=== PATIENT | female | born 1960 | race Caucasian/White ===

== ENCOUNTER 2018-10-18 18:27 | Emergency (ER) | payer OTHER, SELFPAY ==
[2018-10-18 19:13] LABS: Urine Blood TRACE (NEG); Urine Glucose NEGATIVE (NEG); Urine Protein NEGATIVE (NEG); Urine Specific Gravity <1.005 (1.005-1.030)
[2018-10-18 19:14] LABS: Absolute Lymphocytes (CBC) 4.4 K/uL (0.7-4.9); Basophils % 0.6 % (0-1.3); Lymphocytes % 49.5 % (15.3-44.8); MPV 8.3 fL (7.6-11.3); RBC Red Blood Cell Count 4.48 M/uL (3.86-4.86)
[2018-10-18] MEDS ORDERED: ONDANSETRON 4 MG/2 ML VIAL ONE (19:20)
[2018-10-18] MEDS ORDERED: NA CHLORIDE 0.9% 1,000 ML ONE (19:20)
[2018-10-18] MEDS ORDERED: MORPHINE 4 MG/ML SYR ONE (19:20)
[2018-10-18 19:34] LABS: ALT/SGPT 16 U/L (12-78); AST/SGOT 10 U/L (15-37); Albumin 3.6 g/dL (3.4-5.0); Alkaline Phosphatase 87 U/L (45-117); BUN Blood Urea Nitrogen 11 mg/dL (7-18); Bicarbonate 28 mmol/L (21-32); Bilirubin Direct < 0.1 mg/dL (0-0.2); Bilirubin Total 0.1 mg/dL (0.2-1.0); Glucose Level 113 mg/dL (74-106); Lipase 224 U/L (73-393); Potassium 3.5 mmol/L (3.5-5.1); Protein, Total 7.6 g/dL (6.4-8.2); Sodium Level 140 mmol/L (136-145)
[2018-10-18 19:41] LABS: Blood Morphology Comment NOT SEEN (NOT SEEN); Platelet Estimate ADEQ
--- NOTE | 2018-10-18 20:13 | RAD REPORT ---
EXAM DESCRIPTION: CT - Abdomen Pelvis W Contrast - 10/18/2018 7:56 pm CLINICAL HISTORY: Abdominal pain, right upper quadrant pain, history of hepatomegaly and splenomegal y, prior hysterectomy COMPARISON: March 2007 CT abdomen and pelvis TECHNIQUE: Biphasic, helical CT imaging of the abdomen and pelvis was performed following 100 ml non -ionic IV contrast. Oral contrast was given. All CT scans are performed using dose optimization technique as appropriate and may include automated exposure control or mA/KV adjustment according to patient size. FINDINGS: No suspicious findings in the lung bases. Liver and spleen are prominent in size but not clearly abnormally enlarged. Liver has a mild fatty in filtration pattern. This has improved since the pronounced fatty infiltration seen in 2007. No focal liver lesion. No focal splenic abnormality. No pancreatic or peripancreatic abnormality. Gallbladder and biliary tr ee are also without suspicious finding. Symmetric renal function is seen with no hydronephrosis or suspicious renal mass. No pyelonephritis o r acute parenchymal process. No bladder abnormalities. No adrenal abnormalities. Uterus is absent. Ov italo are absent or atrophic. No adnexal abnormality. Stomach is filled with food. No gastric wall thickening or mass. No acute large or small bowel abnorm ality. No appendicitis. Patient has little if any diverticulosis. No free air, free fluid or inflammatory stranding. No mass or bulky lymphadenopathy. A 6 centimeter fat only hernia is seen in the right lower quadrant. Neck is 6 cm. No congestion or edema. Disc and bone degenerative changes are present. No acute bone process seen. IMPRESSION: Contrast enhanced CT abdomen and pelvis showing no acute finding. Nonacute findings are detailed in the body of the report.
--- NOTE | 2018-10-18 20:30 | EDPHYS ---
Physician Documentation [facility] Name: Ewelina Vu Age: 57 yrs Sex: Female : 1960 Arrival Date: 10/18/2018 Time: 18:30 Bed 30 Private MD: ED Physician Trino Santo HPI: 10/18 19:48 This 57 yrs old Female presents to ER via Ambulatory with complaints of pm1 Abdominal Pain. 19:48 The patient presents with abdominal pain in the right upper quadrant. Onset: The pm1 symptoms/episode began/occurred today. The symptoms radiate to right back. Associated signs and symptoms: Pertinent negatives: nausea, vomiting, and diarrhea, chest pain, constipation, dysuria, fever, shortness of breath. The symptoms are described as achy. Modifying factors: The symptoms are alleviated by nothing, the symptoms are aggravated by food. Severity of pain: in the emergency department the pain is actually worse. The patient has not experienced similar symptoms in the past. The patient has not recently seen a physician. 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 - Social history:: Smoking status: Patient/guardian denies using tobacco. - Ebola Screening: : Patient denies exposure to infectious person Patient denies travel to an Ebola-affected area in the 21 days before illness onset. ROS: 19:48 Constitutional: Negative for fever, chills, and weight loss, Eyes: Negative for injury, pm1 pain, redness, and discharge, ENT: Negative for injury, pain, and discharge, Neck: Negative for injury, pain, and swelling, Cardiovascular: Negative for chest pain, palpitations, and edema, Respiratory: Negative for shortness of breath, cough, wheezing, and pleuritic chest pain. 19:48 Back: Negative for injury and pain, : Negative for injury, bleeding, discharge, and swelling, MS/Extremity: Negative for injury and deformity, Skin: Negative for injury, rash, and discoloration, Neuro: Negative for headache, weakness, numbness, tingling, and seizure. 19:48 Abdomen/GI: Positive for abdominal pain, of the right upper quadrant, Negative for nausea, vomiting, and diarrhea, constipation. Exam: 19:48 Constitutional: This is a well developed, well nourished patient who is awake, alert, pm1 and in no acute distress. Head/Face: Normocephalic, atraumatic. Neck: Trachea midline, no thyromegaly or masses palpated, and no cervical lymphadenopathy. Supple, full range of motion without nuchal rigidity, or vertebral point tenderness. No Meningismus. Chest/axilla: Normal chest wall appearance and motion. Nontender with no deformity. No lesions are appreciated. Cardiovascular: Regular rate and rhythm with a normal S1 and S2. No gallops, murmurs, or rubs. Normal PMI, no JVD. No pulse deficits. Respiratory: Lungs have equal breath sounds bilaterally, clear to auscultation and percussion. No rales, rhonchi or wheezes noted. No increased work of breathing, no retractions or nasal flaring. 19:48 Back: No spinal tenderness. No costovertebral tenderness. Full range of motion. Skin: Warm, dry with normal turgor. Normal color with no rashes, no lesions, and no evidence of cellulitis. MS/ Extremity: Pulses equal, no cyanosis. Neurovascular intact. Full, normal range of motion. 19:48 Abdomen/GI: Inspection: abdomen appears normal, Bowel sounds: normal, Palpation: soft, mild abdominal tenderness, in the right upper quadrant, mass, is not appreciated, rebound tenderness, is not appreciated. 19:48 Neuro: Orientation: is normal, Motor: is normal, moves all fours, Sensation: is normal, no obvious gross deficits. Vital Signs: 18:40 Temp 97.5(TE); Height 5 ft. 3 in. (160.02 cm); Pain 10/10; ss 18:47 BP 116 / 67; Pulse 83; Resp 17 S; Pulse Ox 97% on R/A; Weight 90.72 kg (R); ca1 19:30 BP 130 / 70; Pulse 78; Resp 16 S; Pulse Ox 97% on R/A; ca1 20:25 BP 120 / 63; Pulse 81; Resp 16 S; Pulse Ox 98% on R/A; ca1 18:47 Body Mass Index 35.43 (90.72 kg, 160.02 cm) ca1 MDM: 18:42 Patient medically screened. jose 20:26 Data reviewed: vital signs. Data interpreted: Pulse oximetry: on room air is 98 %. pm1 Interpretation: normal. 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 10/18 18:54 Order name: Basic Metabolic Panel; Complete Time: 19:43 pm1 10/18 18:54 Order name: CBC with Diff; Complete Time: 19:43 pm1 10/18 18:54 Order name: Creatinine for Radiology; Complete Time: 19:25 pm1 10/18 18:54 Order name: Hepatic Function; Complete Time: 19:43 pm1 10/18 18:54 Order name: Lipase; Complete Time: 19:43 pm1 10/18 19:08 Order name: Urine Dipstick--Ancillary (enter results); Complete Time: 19:25 cm6 10/18 18:54 Order name: IV Saline Lock; Complete Time: 19:00 pm1 10/18 18:54 Order name: CT Abd/Pelvis - IV Contrast Only; Complete Time: 20:17 pm1 10/18 19:21 Order name: Manual Differential; Complete Time: 19:43 EDMS 10/18 18:54 Order name: Labs collected and sent; Complete Time: 19:00 pm1 Administered Medications: 19:05 Drug: NS 0.9% 1000 ml Route: IV; Rate: 1000 ml; Site: right antecubital; ca1 20:37 Follow up: IV Status: Completed infusion ca1 19:05 Drug: Zofran 4 mg Route: IVP; Site: right antecubital; ca1 20:37 Follow up: Response: No adverse reaction; Nausea is decreased ca1 19:09 Drug: morphine 4 mg Route: IVP; Site: right antecubital; ca1 20:37 Follow up: Response: No adverse reaction; Pain is decreased ca1 20:37 Drug: Pepcid 20 mg Route: IVP; Site: right antecubital; ca1 20:50 Follow up: Response: No adverse reaction rv 20:37 Drug: GI Cocktail without - (Maalox Suspension 30 ml, Lidocaine Liquid 2 % 15 ca1 ml) Route: PO; 20:50 Follow up: Response: Pain is decreased rv Disposition: 10/19 09:54 Co-signature as Attending Physician, Trino Santo MD I agree with the assessment and jose plan of care. Disposition: 10/18/18 20:29 Discharged to Home. Impression: Unspecified abdominal pain. - Condition is Stable. - Discharge Instructions: Abdominal Pain, Adult. - Prescriptions for Bentyl 20 mg Oral Tablet - take 1 tablet by ORAL route every 6 hours As needed; 20 tablet. Pepcid 20 mg Oral Tablet - take 1 tablet by ORAL route every 12 hours for 10 days; 20 tablet. - Medication Reconciliation Form, Thank You Letter, Antibiotic Education, Prescription Opioid Use form. - Follow up: Emergency Department; When: As needed; Reason: Worsening of condition. Follow up: Private Physician; When: 2 - 3 days; Reason: Recheck today's complaints, Continuance of care, Re-evaluation by your physician. - Problem is new. - Symptoms have improved. Signatures: Dispatcher [employer] EDMS Trino Santo MD MD cha Smirch, Shelby, RN RN ss Juan Cartagena, WILFREDO DISPUTE RESOLUTION SPECIALIST pm1 Ellis Brar RN RN Christine Mcfarlane RN RN ca1 Corrections: (The following items were deleted from the chart) 10/18 20:51 20:29 10/18/2018 20:29 Discharged to Home. Impression: Unspecified abdominal pain. rv Condition is Stable. Forms are Medication Reconciliation Form, Thank You Letter, Antibiotic Education, Prescription Opioid Use. Follow up: Emergency Department; When: As needed; Reason: Worsening of condition. Follow up: Private Physician; When: 2 - 3 days; Reason: Recheck today's complaints, Continuance of care, Re-evaluation by your physician. Problem is new. Symptoms have improved. pm1
--- NOTE | 2018-10-18 20:30 | ER ---
Nurse's Notes [facility] Name: Ewelina Vu Age: 57 yrs Sex: Female : 1960 Arrival Date: 10/18/2018 Time: 18:30 Bed 30 Private MD: Diagnosis: Unspecified abdominal pain Presentation: 10/18 18:37 Presenting complaint: Patient states: Intermittent RUQ pain that is worse after eating ss x 2 months. Transition of care: patient was not received from another setting of care. Onset of symptoms is unknown. Risk Assessment: Do you want to hurt yourself or someone else? Patient reports no desire to harm self or others. Initial Sepsis Screen: Does the patient meet any 2 criteria? No. Patient's initial sepsis screen is negative. Does the patient have a suspected source of infection? No. Patient's initial sepsis screen is negative. Care prior to arrival: None. 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 - Social history:: Smoking status: Patient/guardian denies using tobacco. - Ebola Screening: : Patient denies exposure to infectious person Patient denies travel to an Ebola-affected area in the 21 days before illness onset. Screenin:47 Abuse screen: Denies threats or abuse. Denies injuries from another. Nutritional ca1 screening: No deficits noted. Tuberculosis screening: No symptoms or risk factors identified. Fall Risk None identified. Assessment: 18:47 General: Appears in no apparent distress. comfortable, Behavior is calm, cooperative, ca1 appropriate for age. Pain: Complains of pain in posterior aspect of right lateral abdomen, anterior aspect of right lateral abdomen and right upper quadrant Pain currently is 10 out of 10 on a pain scale. Quality of pain is described as sharp, Pain began 2 - 3 months ago but has been worse past few days and worst today. Neuro: Level of Consciousness is awake, alert, obeys commands, Oriented to person, place, time, situation. Cardiovascular: Heart tones S1 S2 Capillary refill < 3 seconds Patient's skin is warm and dry. Respiratory: Airway is patent Respiratory effort is even, unlabored, Respiratory pattern is regular, symmetrical, Breath sounds are clear bilaterally. GI: Abdomen is round non-distended, Bowel sounds present X 4 quads. Abd is soft X 4 quads Abdomen is tender to palpation in posterior aspect of right lateral abdomen and anterior aspect of right lateral abdomen Reports nausea. : No deficits noted. No signs and/or symptoms were reported regarding the genitourinary system. EENT: No deficits noted. No signs and/or symptoms were reported regarding the EENT system. Derm: Skin is intact, is healthy with good turgor, Skin is pink, warm \T\ dry. Musculoskeletal: Circulation, motion, and sensation intact. Capillary refill < 3 seconds, Range of motion: intact in all extremities. 19:40 Reassessment: Patient appears in no apparent distress at this time. Patient and/or ca1 family updated on plan of care and expected duration. Pain level reassessed. Patient is alert, oriented x 3, equal unlabored respirations, skin warm/dry/pink. 19:40 Reassessment: Patient appears in no apparent distress at this time. Patient is alert, ca1 oriented x 3, equal unlabored respirations, skin warm/dry/pink. WILFREDO Martinez at bedside to discuss CT and lab results. 20:38 Reassessment: Patient appears in no apparent distress at this time. Patient is alert, ca1 oriented x 3, equal unlabored respirations, skin warm/dry/pink. Vital Signs: 18:40 Temp 97.5(TE); Height 5 ft. 3 in. (160.02 cm); Pain 10/10; ss 18:47 BP 116 / 67; Pulse 83; Resp 17 S; Pulse Ox 97% on R/A; Weight 90.72 kg (R); ca1 19:30 BP 130 / 70; Pulse 78; Resp 16 S; Pulse Ox 97% on R/A; ca1 20:25 BP 120 / 63; Pulse 81; Resp 16 S; Pulse Ox 98% on R/A; ca1 18:47 Body Mass Index 35.43 (90.72 kg, 160.02 cm) ca1 ED Course: 18:30 Patient arrived in ED. mr 18:34 Marinas, Juan, OCCUPATIONAL PHYSICIAN is PHCP. pm1 18:34 Trino Santo MD is Attending Physician. pm1 18:38 Christine Mcfarlane, KURT is Primary Nurse. ca1 18:39 Triage completed. ss 18:40 Arm band placed on right wrist. ss 18:47 Patient has correct armband on for positive identification. Placed in gown. Bed in low ca1 position. Call light in reach. Side rails up X 1. Pulse ox on. NIBP on. Warm blanket given. 18:47 No provider procedures requiring assistance completed. ca1 19:[address] via wheelchair. eh 19:58 CT Abd/Pelvis - IV Contrast Only In Process Unspecified. EDMS 19:59 CT completed. Patient tolerated procedure well. Patient moved back from CT. eh 20:51 IV discontinued, intact, bleeding controlled, No redness/swelling at site. Pressure rv dressing applied. Administered Medications: 19:05 Drug: NS 0.9% 1000 ml Route: IV; Rate: 1000 ml; Site: right antecubital; ca1 20:37 Follow up: IV Status: Completed infusion ca1 19:05 Drug: Zofran 4 mg Route: IVP; Site: right antecubital; ca1 20:37 Follow up: Response: No adverse reaction; Nausea is decreased ca1 19:09 Drug: morphine 4 mg Route: IVP; Site: right antecubital; ca1 20:37 Follow up: Response: No adverse reaction; Pain is decreased ca1 20:37 Drug: Pepcid 20 mg Route: IVP; Site: right antecubital; ca1 20:50 Follow up: Response: No adverse reaction rv 20:37 Drug: GI Cocktail without - (Maalox Suspension 30 ml, Lidocaine Liquid 2 % 15 ca1 ml) Route: PO; 20:50 Follow up: Response: Pain is decreased rv Outcome: 20:29 Discharge ordered by MD. pm1 20:50 Discharged to home ambulatory, with family. rv 20:50 Condition: good 20:50 Discharge instructions given to patient, family, Instructed on discharge instructions, follow up and referral plans. medication usage, Demonstrated understanding of instructions, follow-up care, medications, Prescriptions given X 2. 20:51 Patient left the ED. rv Signatures: Dispatcher [employer] EDKY Kassandra Lofton FloryYunior Mackenzie Garcia RN RN Juan Jacques NP OCCUPATIONAL PHYSICIAN pm1 Ellis Brar, RN RN rv Acob, Christine, RN RN ca1
[2018-10-18] MEDS ORDERED: MAGNE/ALUM HYDROXD 30 ML UCUP ONE (20:51)
[2018-10-18] MEDS ORDERED: FAMOTIDINE 20 MG/2 ML VIAL IV ONE (20:52)
[2018-10-18] MEDS ORDERED: LIDOCAINE VISCOUS 2% SOLN 15 ML UDC ONE (20:52)
== END 2018-10-18 20:51 | disposition home or self-care (01) ==
LOC: ER 18:27
DX: R10.11 Right upper quadrant pain (principal); J44.9 Chronic obstructive pulmonary disease, unspecified; I10 Essential (primary) hypertension; E11.9 Type 2 diabetes mellitus without complications
CPT/HCPCS: 36415; 74177; 80048; 80076; 81003; 83690; 85025; 96361; 96374; 96375; 99284; J2405; J7030; Q9967

== ENCOUNTER 2023-01-30 12:45 | Emergency (ER) | payer OTHER ==
--- OUTSIDE RECORDS SUMMARY | 2023-01-30 12:47 | XMS REPORT | Continuity of Care Document ---
:1960 Author Organization [facility] t Address [address] [facility] [address] [place] [address] Care Team Providers Name Role Phone Unavailable Unavailable Unavailable Problems This patient has no known problems. Allergies, Adverse Reactions, Alerts This patient has no known allergies or adverse reactions. Medications This patient has no known medications. Procedures This patient has no known procedures. Encounters Start End Encounter Admission Attending Care Care Encounter Source Date/Time Date/Time Type Type Clinicians Facility Department ID 2023-01-26 2023-01-26 Outpatient [facility] [id number] 023 Wade 08:04:05 08:04:05 [address] [facility] [place] 2023-01-12 2023-01-12 Outpatient [facility] [id number] 023 Wade 08:06:45 08:06:45 1020 [facility] [place] 2022-11-17 2022-11-17 Outpatient [facility] [id number] 023 Wade 07:58:48 07:58:48 0825 F [place] 2022-05-10 2022-05-10 Outpatient [facility] [id number] 023 Wade 14:33:15 14:33:15 0215 [facility] [place] 2022-01-10 2022-01-10 Outpatient [facility] [id number] 022 Wade 07:56:40 07:56:40 1018 F Nick Results Test Description Test Time Test Comments Results Result Comments Source HEMOGLOBIN A1c 2023-01-27 02:16:41 Test Item Value Reference Range Interpretation Comme nts HEMOGLOBIN A1c (test code = 8.1 % 4.2-5.6 H [employer] 79095) GUIDELINES FOR HGB A1C: PREDIABETES/INC REASED RISK . . . . . . . 5.7-6.4% DIAGNO SIS OF DIABETES . . . . . . . . . >=6.5% WITH CONFIRMATION OR APPROPRIATE SYM PTOMS NOTE: ASSAY MAY BE AFFECTED BY HEM OGLOBINOPATHIES (SICKLE CELL ANEMIA, S- C DISEASE, OTHERS) OR ARTIFICIALLY LO WERED BY DECREASED RED CELL SURVIVAL ( HEMOLYTIC ANEMIAS, BLOOD LOSS, ETC.). CO NSIDER ALTERNATE TESTING OR LABORATORY C ONSULTATION. UNLESS OTHERWISE INDIC ATED, ALL TESTING PERFORMED AT [facility], [facility]. [address] [place] [address] GRAEME LEGGETT DIRECTOR: CHERELLE SCHULER M.D. [place] NUMBER [id number] [place] [id number] COMPREHENSIVE METABOLIC [id number] 03:15:29 Test Item Value Reference Range Interpretation Comments GLUCOSE (test code = 212 MG/DL 70-99 H 2216) BUN (test code = 10 MG/DL 8-23 2207) CREATININE (test 0.59 MG/DL 0.60-1.30 L code = 221) eGFR (2020 CKD-EPI) 103 >60 (test code = 03628) ML/MIN/1.73 CALC BUN/CREAT (test 17 RATIO 6-28 code = 2235) SODIUM (test code = 140 MEQ/L 612-094 3851) POTASSIUM (test code 4.6 MEQ/L 3.5-5.4 = 2227) CHLORIDE (test code 102 MEQ/L 95-107 = 221) CARBON DIOXIDE (test 25 MEQ/L 19-31 code = 2206) CALCIUM (test code = 9.3 MG/DL 8.5-10.5 2208) PROTEIN, TOTAL (test 7.1 G/DL 6.1-8.3 code = 2229) ALBUMIN (test code = 4.4 G/DL 3.5-5.2 2200) CALC GLOBULIN (test 2.7 G/DL 1.9-3.7 code = 2240) CALC A/G RATIO (test 1.6 RATIO 1.0-2.6 code = 2234) BILIRUBIN, TOTAL 0.3 MG/DL See_Comment [Automated message] (test code = 2207) The syste m which generated this result transmit ricky reference range : <=1.2. The refe rence range was not u sed to interpret th is result as normal/abnormal . ALKALINE PHOSPHATASE 107 U/L 40-136 (test code = 2204) AST (test code = 9 U/L 9-40 2217) ALT (test code = 10 U/L 5-40 2218) LIPID [id number] 03:15:29 Test Item Value Reference Range Interpretation Comments CHOLESTEROL (test 197 MG/DL <200 code = 2210) TRIGLYCERIDES (test 112 MG/DL <150 code = 2232) HDL CHOLESTEROL (test 54 MG/DL >39 code = 2220) CALC LDL CHOL (test 121 MG/DL <100 H NOTE: C ALCULATED LDL code = 2237) IS BASED ON JACK-STEARNS METHOD WHICHINCLUDES ADJUSTABLE TRIGLYCERIDE:VL DL CHOLESTEROL RAT IO.THIS FACTOR VARIES B Y MEASURED TRIGLY CERIDE AND NON-HDLCHOL ESTEROL CONCENTRATIONS WITH INCREASED CALCU LATED LDL SEENIN HIGH ER TRIGLYCERIDE OR LOWER NON-HDL SPECIME NS. FOR MOREINFORMATION , SEE CLIENT ANNOUNCE MENT AT [email or web address] LDL/HDL 2.24 RATIO <3.22 UNLESS O THERWISE (test code = 2238) INDICATED , ALL TESTING PERFORMED AT [facility], [facility]. [address] [place] [id number] [place] [address] DIRECTOR: Elodia MARTINEZ EDGAR NUMBER [id number] CAP ACCREDITATION N O. [id number] HEMOGLOBIN [id number] 02:45:35 Test Item Value Reference Range Interpretation Comments HEMOGLOBIN A1c (test 9.1 % 4.2-5.6 H [employer] code = 21285) ASSOCIATION IDELINES FOR HGB A1C: PREDIABETES/INC REASED RISK . . . . . . . 5.7 -6.4% DIAGNOSIS OF DI ABETES . . . . . . . . . >=6 .5% WITH CONFIRMATION OR APPROPRIATE SYMPTOMS NOTE: ASSAY MAY BE AFFECTED BY HEMOGLOBINOPATH IES (SICKLE CELL ANEMIA, S- C DISEASE, OTHERS) OR ISMA FICIALLY LOWERED BY DECR EASED RED CELL SURVIVAL ( HEMOLYTIC ANEMIAS, BLOOD LOSS, ETC.). CONSIDER ALTERN ATE TESTING OR LABORATORY C ONSULTATION. [id number] 05:31:19 Test Item Value Reference Range Interpretation Comments AMYLASE (test code = 2205) 93 U/L 28-100 [id number] 05:31:19 Test Item Value Reference Range Interpretation Comments LIPASE (test code = 65 U/L 13-60 H [facility] has important 2057) pathology staff changes effective 05/24. New pathology s taff will provide uninter rupted, excellent patie nt care and clinical consultation. S ee URL: [email or web address] UNLESS O THERWISE INDICATED, ALL TESTING PERFORMED AT [facility] [employer] [address] [place], [place] CLIA: [id number], CAP: [id number] LIPID [id number] 05:14:36 Test Item Value Reference Range Interpretation Comments CHOLESTEROL (test 197 MG/DL <200 code = 2210) TRIGLYCERIDES (test 234 MG/DL <150 H code = 2232) HDL CHOLESTEROL (test 47 MG/DL >39 code = 2220) CALC LDL CHOL (test 115 MG/DL <100 H NOTE: C ALCULATED LDL code = 2237) IS BASED ON JACK-STEARNS METHOD WHICHINCLUDES ADJUSTABLE TRIGLYCERIDE:VL DL CHOLESTEROL RAT IO.THIS FACTOR VARIES B Y MEASURED TRIGLY CERIDE AND NON-HDLCHOL ESTEROL CONCENTRATIONS WITH INCREASED CALCU LATED LDL SEENIN HIGH ER TRIGLYCERIDE OR LOWER NON-HDL SPECIME NS. FOR MOREINFORMATION , SEE CLIENT ANNOUNCE MENT AT [email or web address] LDL/HDL 2.45 RATIO <3.22 (test code = 2238) COMPREHENSIVE METABOLIC [id number] 05:14:36 Test Item Value Reference Range Interpretation Comments GLUCOSE (test code = 154 MG/DL 70-99 H 2216) BUN (test code = 14 MG/DL 6-20 2207) CREATININE (test 0.77 MG/DL 0.60-1.30 code = 2214) eGFR (2020 CKD-EPI) 89 ML/MIN/1.73 >60 (test code = 32676) CALC BUN/CREAT (test 18 RATIO 6-28 code = 2235) SODIUM (test code = 141 MEQ/L 062-032 9204) POTASSIUM (test code 4.0 MEQ/L 3.5-5.4 = 2228) CHLORIDE (test code 101 MEQ/L 95-107 = 2215) CARBON DIOXIDE (test 27 MEQ/L 19-31 code = 2206) CALCIUM (test code = 9.4 MG/DL 8.5-10.5 2208) PROTEIN, TOTAL (test 6.8 G/DL 6.1-8.3 code = 2228) ALBUMIN (test code = 4.2 G/DL 3.5-5.2 2200) CALC GLOBULIN (test 2.6 G/DL 1.9-3.7 code = 2239) CALC A/G RATIO (test 1.6 RATIO 1.0-2.6 code = 2233) BILIRUBIN, TOTAL <0.2 MG/DL See_Comment [Automated message] (test code = 2206) The syste m which generated this result transmit ricky reference range : <=1.2. The refe rence range was not u sed to interpret th is result as normal/abnormal . ALKALINE PHOSPHATASE 80 U/L 40-136 (test code = 2203) AST (test code = 15 U/L 9-40 2217) ALT (test code = 9 U/L 5-40 2218) HEMOGLOBIN [id number] 03:29:36 Test Item Value Reference Range Interpretation Comments HEMOGLOBIN A1c (test 6.8 % 4.2-5.6 H [employer] code = 25650) ASSOCIATION IDELINES FOR HGB A1C: PREDIABETES/INC REASED RISK . . . . . . . 5.7 -6.4% DIAGNOSIS OF DI ABETES . . . . . . . . . >=6 .5% WITH CONFIRMATION OR APPROPRIATE SYMPTOMS NOTE: ASSAY MAY BE AFFECTED BY HEMOGLOBINOPATH IES (SICKLE CELL ANEMIA, S- C DISEASE, OTHERS) OR ISMA FICIALLY LOWERED BY DECR EASED RED CELL SURVIVAL ( HEMOLYTIC ANEMIAS, BLOOD LOSS, ETC.). CONSIDER ALTERN ATE TESTING OR LABORATORY C ONSULTATION. [id number] 06:52:23 Test Item Value Reference Range Interpretation Comments AMYLASE (test code = 2204) 82 U/L 28-100 [id number] 06:52:23 Test Item Value Reference Range Interpretation Comments LIPASE (test code = 17 U/L 13-60 UNLESS OTHERWISE 2057) INDICATED, ALL TESTING PERFORMED [facility] [address] [place] [address] [facility] DIRECTOR: CHUCHO JONES M.D. CLIA NUMBER [id number] CAP ACCREDITATION N O. [id number] COMPREHENSIVE METABOLIC [id number] 06:43:00 Test Item Value Reference Range Interpretation Comments GLUCOSE (test code = 44 MG/DL 70-99 L Analyt ic results 2216) reviewed and verified. Speci men received with r ed cells in contac t with serum. Cer tain results may be affected. Clini zohaib correlation is advised to dete rmine need for recollection. BUN (test code = 11 MG/DL 6-20 2207) CREATININE (test 0.53 MG/DL 0.60-1.30 L code = 2214) eGFR (2020 CKD-EPI) 106 >60 (test code = 69378) ML/MIN/1.73 CALC BUN/CREAT (test 21 RATIO 6-28 code = 2235) SODIUM (test code = 145 MEQ/L 034-601 9099) POTASSIUM (test code 4.2 MEQ/L 3.5-5.4 = 2227) CHLORIDE (test code 105 MEQ/L 95-107 = 2214) CARBON DIOXIDE (test 28 MEQ/L 19-31 code = 2206) CALCIUM (test code = 9.1 MG/DL 8.5-10.5 2208) PROTEIN, TOTAL (test 6.6 G/DL 6.1-8.3 code = 222) ALBUMIN (test code = 4.3 G/DL 3.5-5.2 2200) CALC GLOBULIN (test 2.3 G/DL 1.9-3.7 code = 2240) CALC A/G RATIO (test 1.9 RATIO 1.0-2.6 code = 2234) BILIRUBIN, TOTAL <0.2 MG/DL See_Comment [Automated message] (test code = 2207) The syste m which generated this result transmit ricky reference range : <=1.2. The refe rence range was not u sed to interpret th is result as normal/abnormal . ALKALINE PHOSPHATASE 80 U/L 40-136 (test code = 2204) AST (test code = 12 U/L 9-40 2217) ALT (test code = 12 U/L 5-40 2218) LIPID [id number] 06:43:00 Test Item Value Reference Range Interpretation Comments CHOLESTEROL (test 205 MG/DL <200 H code = 2210) TRIGLYCERIDES (test 114 MG/DL <150 code = 2232) HDL CHOLESTEROL (test 57 MG/DL >39 code = 2220) CALC LDL CHOL (test 126 MG/DL <100 H NOTE: C ALCULATED LDL code = 2237) IS BASED ON JACK-STEARNS METHOD WHICHINCLUDES ADJUSTABLE TRIGLYCERIDE:VL DL CHOLESTEROL RAT IO.THIS FACTOR VARIES B Y MEASURED TRIGLY CERIDE AND NON-HDLCHOL ESTEROL CONCENTRATIONS WITH INCREASED CALCU LATED LDL SEENIN HIGH ER TRIGLYCERIDE OR LOWER NON-HDL SPECIME NS. FOR MOREINFORMATION , SEE CLIENT ANNOUNCE MENT AT [email or web address] RATIO LDL/HDL 2.21 RATIO <3.22 (test code = 2238) HEMOGLOBIN [id number] 06:16:10 Test Item Value Reference Range Interpretation Comments HEMOGLOBIN A1c (test 6.8 % 4.2-5.6 H [employer] code = 33063) ASSOCIATION IDELINES FOR HGB A1C: PREDIABETES/INC REASED RISK . . . . . . . 5.7 -6.4% DIAGNOSIS OF DI ABETES . . . . . . . . . >=6 .5% WITH CONFIRMATION OR APPROPRIATE SYMPTOMS NOTE: ASSAY MAY BE AFFECTED BY HEMOGLOBINOPATH IES (SICKLE CELL ANEMIA, S- C DISEASE, OTHERS) OR ISMA FICIALLY LOWERED BY DECR EASED RED CELL SURVIVAL ( HEMOLYTIC ANEMIAS, BLOOD LOSS, ETC.). CONSIDER ALTERN ATE TESTING OR LABORATORY C ONSULTATION. HEMOGLOBIN [id number] 05:34:43 Test Item Value Reference Range Interpretation Comments HEMOGLOBIN A1c (test 7.2 % 4.2-5.6 H [employer] code = 72389) ASSOCIATION IDELINES FOR HGB A1C: PREDIABETES/INC REASED RISK . . . . . . . 5.7 -6.4% DIAGNOSIS OF DI ABETES . . . . . . . . . >=6 .5% WITH CONFIRMATION OR APPROPRIATE SYMPTOMS NOTE: ASSAY MAY BE AFFECTED BY HEMOGLOBINOPATH IES (SICKLE CELL ANEMIA, S- C DISEASE, OTHERS) OR ISMA FICIALLY LOWERED BY DECR EASED RED CELL SURVIVAL ( HEMOLYTIC ANEMIAS, BLOOD LOSS, ETC.). CONSIDER ALTERN ATE TESTING OR LABORATORY C ONSULTATION. LIPID [id number] 04:33:44 Test Item Value Reference Range Interpretation Comments CHOLESTEROL (test 154 MG/DL <200 code = 2210) TRIGLYCERIDES (test 122 MG/DL <150 code = 2232) HDL CHOLESTEROL (test 39 MG/DL >39 L code = 2220) CALC LDL CHOL (test 93 MG/DL <100 NOTE: C ALCULATED LDL code = 2237) IS BASED ON JACK-STEARNS METHOD WHICHINCLUDES ADJUSTABLE TRIGLYCERIDE:VL DL CHOLESTEROL RAT IO.THIS FACTOR VARIES B Y MEASURED TRIGLY CERIDE AND NON-HDLCHOL ESTEROL CONCENTRATIONS WITH INCREASED CALCU LATED LDL SEENIN HIGH ER TRIGLYCERIDE OR LOWER NON-HDL SPECIME NS. FOR MOREINFORMATION , SEE CLIENT ANNOUNCE MENT AT [email or web address] RATIO LDL/HDL 2.38 RATIO <3.22 UNLESS O THERWISE (test code = 2238) INDICATED , ALL TESTING PERFORMED [facility], [facility]. [address] [place] [id number] [place] [address] JARVIS DIRECTOR: CHUCHO JONES M.D. CLIA NUMBER [id number] CAP ACCREDITATION N O. [id number] HEMOGLOBIN [id number] 07:33:04 Test Item Value Reference Range Interpretation Comments HEMOGLOBIN A1c (test 9.0 % 4.2-5.6 H [employer] code = 94907) ASSOCIATION IDELINES FOR HGB A1C: PREDIABETES/INC REASED RISK . . . . . . . 5.7 -6.4% DIAGNOSIS OF DI ABETES . . . . . . . . . >=6 .5% WITH CONFIRMATION OR APPROPRIATE SYMPTOMS NOTE: ASSAY MAY BE AFFECTED BY HEMOGLOBINOPATH IES (SICKLE CELL ANEMIA, S- C DISEASE, OTHERS) OR ISMA FICIALLY LOWERED BY DECR EASED RED CELL SURVIVAL ( HEMOLYTIC ANEMIAS, BLOOD LOSS, ETC.). CONSIDER ALTERN ATE TESTING OR LABORATORY C ONSULTATION. CBC W/AUTO DIFF WITH [id number] 06:38:12 Test Item Value Reference Range Interpretation Comments WBC (test code = 7.3 K/UL 3.5-11.0 1001) RBC (test code = 4.76 M/UL 3.80-5.40 1002) HEMOGLOBIN (test code 14.8 G/DL 11.5-15.5 = 1003) HEMATOCRIT (test code 42.8 % 34.0-45.0 = 1004) MCV (test code = 89.9 fL 80.0-99.0 1005) MCH (test code = 31.1 PG 25.0-33.0 1006) MCHC (test code = 34.6 G/DL 31.0-36.0 1007) RDW (test code = 12.2 % 11.5-15.0 1038) NEUTROPHILS (test 45.9 % code = 1008) LYMPHOCYTES (test 48.3 % code = 1010) MONOCYTES (test code 4.4 % = 1011) EOSINOPHILS (test 0.4 % code = 1012) BASOPHILS (test code 0.7 % = 1013) IMMATURE GRANULOCYTES 0.3 % (test code = 1036) NUCLEATED RBCS (test 0.0 /100 WBC'S See_Comment [Aut omated code = 1065) message] The sy stem which generated this result transmitted reference range : 0.0. The refere nce range was not u sed to interpret th is result as normal/abnormal . PLATELET COUNT (test 237 K/UL 130-400 code = 1015) ABSOLUTE NEUTROPHILS 3.36 K/UL 1.50-7.50 (test code = 1066) ABSOLUTE LYMPHOCYTES 3.53 K/UL 1.00-4.00 (test code = 1067) ABSOLUTE MONOCYTES 0.32 K/UL 0.20-1.00 (test code = 1068) ABSOLUTE EOSINOPHILS 0.03 K/UL 0.00-0.50 (test code = 1040) ABSOLUTE BASOPHILS 0.05 K/UL 0.00-0.20 (test code = 1069) ABS IMMATURE 0.02 K/UL 0.00-0.10 GRANULOCYTES (test code = 1020) ABS NUCLEATED RBCS 0.00 K/UL 0.00-0.11 (test code = 97905) THYROID II PROFILE (TU,T4,FTI,TSH)[id number] 06:06:31 Test Item Value Reference Range Interpretation Comments T-UPTAKE (test code = 2817) 33.1 % 24.3-39.0 THYROX. BIND. CAPAC. (test code 1.0 0.8-1.3 = 85773) T4 (THYROXINE) (test code = 10.0 UG/DL 4.5-10.5 2818) CORRECTED T4 (FTI) (test code = 10.0 UG/DL 4.2-11.6 2819) TSH, THIRD GENERATION (test code 1.690 UIU/ML 0.400-4.100 = 282) LIPID [id number] 03:40:20 Test Item Value Reference Range Interpretation Comments CHOLESTEROL (test 230 MG/DL <200 H code = 2210) TRIGLYCERIDES (test 148 MG/DL <150 code = 2232) HDL CHOLESTEROL (test 58 MG/DL >39 code = 2220) CALC LDL CHOL (test 145 MG/DL <100 H NOTE: C ALCULATED LDL code = 2237) IS BASED ON JACK-STEARNS METHOD WHICHINCLUDES ADJUSTABLE TRIGLYCERIDE:VL DL CHOLESTEROL RAT IO.THIS FACTOR VARIES B Y MEASURED TRIGLY CERIDE AND NON-HDLCHOL ESTEROL CONCENTRATIONS WITH INCREASED CALCU LATED LDL SEENIN HIGH ER TRIGLYCERIDE OR LOWER NON-HDL SPECIME NS. FOR MOREINFORMATION , SEE CLIENT ANNOUNCE MENT AT [email or web address] [email or web address] RATIO LDL/HDL 2.50 RATIO <3.22 (test code = 2238) COMPREHENSIVE METABOLIC [id number] 03:40:20 Test Item Value Reference Range Interpretation Comments GLUCOSE (test code = 322 MG/DL 70-99 H 2216) BUN (test code = 8 MG/DL 6-20 2207) CREATININE (test 0.63 MG/DL 0.60-1.30 code = 2214) eGFR (2020 CKD-EPI) 103 >60 (test code = 62121) ML/MIN/1.73 CALC BUN/CREAT (test 13 RATIO 6-28 code = 2235) SODIUM (test code = 139 MEQ/L 772-152 0624) POTASSIUM (test code 4.3 MEQ/L 3.5-5.4 = 2227) CHLORIDE (test code 98 MEQ/L 95-107 = 221) CARBON DIOXIDE (test 25 MEQ/L 19-31 code = 2206) CALCIUM (test code = 9.4 MG/DL 8.5-10.5 2208) PROTEIN, TOTAL (test 7.4 G/DL 6.1-8.3 code = 222) ALBUMIN (test code = 4.5 G/DL 3.5-5.2 2200) CALC GLOBULIN (test 2.9 G/DL 1.9-3.7 code = 2240) CALC A/G RATIO (test 1.6 RATIO 1.0-2.6 code = 2234) BILIRUBIN, TOTAL 0.3 MG/DL See_Comment [Automated message] (test code = 2207) The syste m which generated this result transmitted ref erence range: <=1.2. T he reference range was not used to int erpret this result as normal/abnormal . ALKALINE PHOSPHATASE 106 U/L 40-136 (test code = 2203) AST (test code = 11 U/L 9-40 2217) ALT (test code = 10 U/L 5-40 UNLESS OTH ERWISE 2218) INDICATED, ALL TESTING PERFORM [facility] [place]. [address] [place], [place] [id number] [place] [address] DIRECTOR: Elodia KENIA NUMBER [id number] CAP ACCREDITATION N O. [id number]
--- NOTE | 2023-01-30 14:00 | RAD REPORT ---
EXAM DESCRIPTION: RAD - Knee Left 3 View - 01/30/2023 1:46 pm CLINICAL HISTORY: PAIN COMPARISON: <Comparisons> FINDINGS: No acute fracture or dislocation seen. No joint effusion. Moderate popliteal atheroscleros is.
--- NOTE | 2023-01-30 14:04 | EDPHYS ---
Physician Documentation [facility] Name: Ewelina Vu Age: 62 yrs Sex: Female : 1960 Arrival Date: 01/30/2023 Time: 12:45 Bed DIS5 Private MD: ED Physician Bala Renee HPI: 01/30 13:37 This 62 yrs old Female presents to ER via Ambulatory with complaints of Knee Pain. snw 13:37 Onset: The symptoms/episode began/occurred 6 month(s) ago, and became persistent. It is snw unknown whether or not the patient has had similar symptoms in the past. The patient has not recently seen a physician. Historical: - Allergies: 13:04 No Known Allergies; cm10 - PMHx: 13:04 COPD; Diabetes; enlarged liver; enlarged spleen; Hypertension; neuropathy; cm10 - Immunization history:: Adult Immunizations unknown. - Social history:: Smoking status: Reported history of juuling and/or vaping. ROS: 13:37 Constitutional: Negative for fever, chills, and weight loss, Eyes: Negative for injury, snw pain, redness, and discharge, ENT: Negative for injury, pain, and discharge, Neck: Negative for injury, pain, and swelling, Cardiovascular: Negative for chest pain, palpitations, and edema, Respiratory: Negative for shortness of breath, cough, wheezing, and pleuritic chest pain, Abdomen/GI: Negative for abdominal pain, nausea, vomiting, diarrhea, and constipation, Back: Negative for injury and pain, : Negative for injury, bleeding, discharge, and swelling, Skin: Negative for injury, rash, and discoloration, Neuro: Negative for headache, weakness, numbness, tingling, and seizure, Psych: Negative for depression, anxiety, suicide ideation, homicidal ideation, and hallucinations, 13:37 MS/extremity: Positive for pain, of the left knee, since August, Exam: 14:32 Constitutional: This is a well developed, well nourished patient who is awake, alert, snw and in no acute distress. Head/Face: Normocephalic, atraumatic. Eyes: Pupils equal round and reactive to light, extra-ocular motions intact. Lids and lashes normal. Conjunctiva and sclera are non-icteric and not injected. Cornea within normal limits. Periorbital areas with no swelling, redness, or edema. ENT: Nares patent. No nasal discharge, no septal abnormalities noted. Tympanic membranes are normal and external auditory canals are clear. Oropharynx with no redness, swelling, or masses, exudates, or evidence of obstruction, uvula midline. Mucous membranes moist. Neck: Trachea midline, no thyromegaly or masses palpated, and no cervical lymphadenopathy. Supple, full range of motion without nuchal rigidity, or vertebral point tenderness. No Meningismus. Chest/axilla: Normal chest wall appearance and motion. Nontender with no deformity. No lesions are appreciated. Cardiovascular: Regular rate and rhythm with a normal S1 and S2. No gallops, murmurs, or rubs. Normal PMI, no JVD. No pulse deficits. Respiratory: Lungs have equal breath sounds bilaterally, clear to auscultation and percussion. No rales, rhonchi or wheezes noted. No increased work of breathing, no retractions or nasal flaring. Abdomen/GI: Soft, non-tender, with normal bowel sounds. No distension or tympany. No guarding or rebound. No evidence of tenderness throughout. Back: No spinal tenderness. No costovertebral tenderness. Full range of motion. Skin: Warm, dry with normal turgor. Normal color with no rashes, no lesions, and no evidence of cellulitis. Neuro: Awake and alert, GCS 15, oriented to person, place, time, and situation. Cranial nerves II-XII grossly intact. Motor strength 5/5 in all extremities. Sensory grossly intact. Cerebellar exam normal. Normal gait. Psych: Awake, alert, with orientation to person, place and time. Behavior, mood, and affect are within normal limits. 14:32 Musculoskeletal/extremity: Extremities: grossly normal except: noted in the left knee: tenderness, no edema noted, + neoprene sleeve, Vital Signs: 13:03 BP 101 / 58; Pulse 82; Resp 18; Temp 98.1(TE); Pulse Ox 96% on R/A; Weight 85.28 kg; cm10 Height 5 ft. 3 in. ; Pain 8/10; 13:03 Body Mass Index 33.30 (85.28 kg, 160.02 cm) cm10 13:03 Pain Scale: Adult cm10 MDM: 13:15 Patient medically screened. snw 13:37 Differential diagnosis: abrasion, contusion, sprain, strain. Data reviewed: vital snw signs, nurses notes, radiologic studies, plain films. 14:33 Counseling: I had a detailed discussion with the patient and/or guardian regarding the snw historical points, exam findings, and any diagnostic results supporting the discharge/admit diagnosis, radiology results, the need for outpatient follow up, for definitive care, to return to the emergency department if symptoms worsen or persist or if there are any questions or concerns that arise at home. Special discussion: Based on the history and exam findings, there is no indication for further emergent testing or inpatient evaluation. I discussed with the patient/guardian the need to see the orthopedic surgeon for further evaluation of the symptoms. I discussed with the patient/guardian the need to see the primary care provider for further evaluation of the symptoms. 01/30 13:16 Order name: Knee Left 3 View XRAY; Complete Time: 14:01 snw Administered Medications: No medications were administered Disposition Summary: 01/30/23 14:03 Discharge Ordered Notes: Location: Home snw Condition: Stable snw Diagnosis - Pain in left knee snw - Osteoarthritis of knee, unspecified snw Followup: snw - With: Junior Martin MD - When: 1 week - Reason: Recheck today's complaints, Continuance of care, Re-evaluation by your physician Discharge Instructions: - Discharge Summary Sheet snw - Joint Pain snw - Arthritis snw - How to Use a Knee Brace snw - Musculoskeletal Pain snw Forms: - Medication Reconciliation Form snw - Thank You Letter snw - Antibiotic Education snw - Prescription Opioid Use snw - Patient Portal Instructions snw - Leadership Thank You Letter snw Prescriptions: - Mobic 7.5 mg Oral Tablet - take 1 tablet ORAL route once daily take with food; 20 tablet; Refills: 0, snw Product Selection Permitted Signatures: Dispatcher [employer] Chuyita Johnson FNP-C FNP-Gina Ray, RN RN [id number]
--- NOTE | 2023-01-30 14:04 | ER ---
Nurse's Notes [facility] Name: Ewelina Vu Age: 62 yrs Sex: Female : 1960 Arrival Date: 01/30/2023 Time: 12:45 Bed DIS5 Private MD: Diagnosis: Pain in left knee;Osteoarthritis of knee, unspecified Presentation: 01/30 13:03 Chief complaint: Patient states: left knee pain onset in August after falling. pt states cm10 that she has not followed up with ortho. Coronavirus screen: Vaccine status: Patient reports receiving the 2nd dose of the covid vaccine. Client denies travel out of the [place] in the last 14 days. Ebola Screen: Patient denies travel to an Ebola-affected area in the 21 days before illness onset. No symptoms or risks identified at this time. Initial Sepsis Screen: Does the patient meet any 2 criteria? No. Patient's initial sepsis screen is negative. Does the patient have a suspected source of infection? No. Patient's initial sepsis screen is negative. Risk Assessment: Do you want to hurt yourself or someone else? Patient reports no desire to harm self or others. Onset of symptoms was January 30, 2023. 13:03 Method Of Arrival: Ambulatory cm10 13:03 Acuity: POLA 4 cm10 Triage Assessment: 13:07 General: Appears in no apparent distress. comfortable, Behavior is calm, cooperative. cm10 Pain: Complains of pain in left knee. EENT: No deficits noted. No signs and/or symptoms were reported regarding the EENT system. Neuro: No deficits noted. Daniels Agitation-Sedation Scale (RASS): 0 - Alert and Calm Level of Consciousness is awake, alert, obeys commands, Oriented to person, place, time, situation. Cardiovascular: No deficits noted. Patient's skin is warm and dry. Respiratory: No deficits noted. Airway is patent Respiratory effort is even, unlabored, Respiratory pattern is regular, symmetrical. GI: No deficits noted. No signs and/or symptoms were reported involving the gastrointestinal system. : No deficits noted. No signs and/or symptoms were reported regarding the genitourinary system. Derm: No deficits noted. No signs and/or symptoms reported regarding the dermatologic system. Skin is intact, Skin is pink, warm \T\ dry. Musculoskeletal: No deficits noted. Range of motion: intact in all extremities, Reports pain in left knee. Historical: - Allergies: 13:04 No Known Allergies; cm10 - PMHx: 13:04 COPD; Diabetes; enlarged liver; enlarged spleen; Hypertension; neuropathy; cm10 - Immunization history:: Adult Immunizations unknown. - Social history:: Smoking status: Reported history of juuling and/or vaping. Screenin:07 [facility] ED Fall Risk Assessment (Adult) History of falling in the last 3 months, cm10 including since admission Yes- single mechanical fall (1 pt) Confusion or Disorientation No (0 pts) Intoxicated or Sedated No (0 pts) Impaired Gait No (0 pts) Mobility Assist Device Used No (0 pt) Altered Elimination No (0 pt) Score/Fall Risk Level 0 - 2 = Low Risk Oriented to surroundings, Maintained a safe environment, Hourly rounding (assess needs \T\ fall precautionary measures) done. Abuse screen: Denies threats or abuse. Denies injuries from another. Nutritional screening: No deficits noted. Tuberculosis screening: No symptoms or risk factors identified. Vital Signs: 13:03 BP 101 / 58; Pulse 82; Resp 18; Temp 98.1(TE); Pulse Ox 96% on R/A; Weight 85.28 kg; cm10 Height 5 ft. 3 in. ; Pain 8/10; 13:03 Body Mass Index 33.30 (85.28 kg, 160.02 cm) cm10 13:03 Pain Scale: Adult cm10 ED Course: 12:48 Patient arrived in ED. mg5 12:50 Chuyita Jean Baptiste F[facility]-C [facility] snw 12:50 Bala Renee MD is Attending Physician. snw 13:04 Triage completed. cm10 13:04 Arm band placed on Patient placed in waiting room. cm10 13:07 Patient has correct armband on for positive identification. Provided Education on: ER cm10 process and procedures. . 13:46 Knee Left 3 View XRAY In Process Unspecified. EDMS 14:02 Junior Martin MD is Referral Physician. snw 14:07 No provider procedures requiring assistance completed. Patient did not have IV access hb during this emergency room visit. Administered Medications: No medications were administered Medication: 13:07 VIS not applicable for this client. cm10 Outcome: 14:03 Discharge ordered by . snw 14:07 Discharged to home ambulatory, 14:07 Condition: stable 14:07 Discharge instructions given to patient, Instructed on discharge instructions, follow up and referral plans. medication usage, Demonstrated understanding of instructions, follow-up care, medications, Prescriptions given X 1, 14:10 Patient left the ED. hb Signatures: Dispatcher [employer] EDMS Chuyita Jean Baptiste, [employer] Myra Olivares RN RN Gina Quiroz RN RN cm10 Tierra Streeter mg5
[2023-01-30 14:20] VITALS: BP 101/58; TEMP 98.1; O2SAT 96
== END 2023-01-30 14:10 | disposition home or self-care (01) ==
LOC: ER 12:45
DX: M17.12 Unilateral primary osteoarthritis, left knee (principal)
CPT/HCPCS: 99283